=== PATIENT | male | born 1990 | race Asian ===

== ENCOUNTER 2020-06-21 16:33 | Emergency (ER) | payer OTHER ==
[~2020-06-21] VITALS: Ht 177.8 cm; Wt 140.6 kg
[2020-06-21 17:20] VITALS: BP 144/83; TEMP 97.5
== END 2020-06-21 17:20 | disposition home or self-care (01) ==
LOC: ED 16:33
DX: H60.12 Cellulitis of left external ear (principal); S00.462A Insect bite (nonvenomous) of left ear, initial encounter; W57.XXXA Bitten or stung by nonvenomous insect and other nonvenomous arthropods, initial encounter; Y92.89 Other specified places as the place of occurrence of the external cause
CPT/HCPCS: 99282

== ENCOUNTER 2021-12-29 16:50 | Emergency (ER) | payer OTHER ==
[~2021-12-29] VITALS: Ht 180.3 cm; Wt 154.2 kg
[2021-12-29 18:13] VITALS: BP 119/68; TEMP 98.5
== END 2021-12-29 18:13 | disposition home or self-care (01) ==
LOC: ED 16:50
DX: L05.91 Pilonidal cyst without abscess (principal)
CPT/HCPCS: 96372; 99283; J0696; J1885

== ENCOUNTER 2022-01-03 20:49 | Inpatient (IN) | payer OTHER ==
[~2022-01-03] VITALS: Ht 152.4 cm; Wt 164.7 kg
[2022-01-03 20:55] VITALS: BP 161/103; TEMP 98.5
[2022-01-03 21:32] LABS: POTASSIUM 3.9 mmol/L (3.6-5.2)
[2022-01-03 21:35] VITALS: BP 149/97
[2022-01-03 21:38] LABS: PLATELET COUNT 357 K/uL (142-355)
[2022-01-03 22:35] VITALS: BP 134/83
[2022-01-03 23:45] VITALS: BP 156/108
[2022-01-04 02:10] VITALS: BP 150/91; TEMP 98.6; BMI 47.6
[2022-01-04 04:00] VITALS: BP 106/64; TEMP 97.7
[2022-01-04 05:12] LABS: PLATELET COUNT 304 K/uL (142-355)
[2022-01-04 05:26] LABS: POTASSIUM 4.3 mmol/L (3.6-5.2)
[2022-01-04 08:00] VITALS: BP 132/85; TEMP 97.4
[2022-01-04 12:00] VITALS: BP 141/8; BP 141/88; TEMP 97.2
[2022-01-04 16:00] VITALS: BP 158/94; TEMP 97.7
[2022-01-04 20:00] VITALS: BP 160/80; TEMP 97.5
[2022-01-05] VITALS: BP 120/65; TEMP 98.1
[2022-01-05 04:00] VITALS: BP 133/84; TEMP 97.6
[2022-01-05 04:45] LABS: PLATELET COUNT 306 K/uL (142-355)
[2022-01-05 04:46] LABS: POTASSIUM 4.1 mmol/L (3.6-5.2)
[2022-01-05 08:00] VITALS: BP 125/81; TEMP 97.6
[2022-01-05 12:00] VITALS: BP 155/109; TEMP 97.3
[2022-01-05 16:22] VITALS: BP 137/80; TEMP 98.1
[2022-01-05 20:00] VITALS: BP 163/104; TEMP 98.5
[2022-01-05 21:39] LABS: POTASSIUM 4.4 mmol/L (3.6-5.2)
[2022-01-06] VITALS: BP 152/99; TEMP 98.1
[2022-01-06 03:13] VITALS: BP 122/73; TEMP 98.1; Ht 152.4 cm; Wt 164.7 kg
[2022-01-06 04:00] VITALS: BP 149/89; TEMP 98.1
[2022-01-06 05:44] LABS: PLATELET COUNT 292 K/uL (142-355)
[2022-01-06 06:44] LABS: POTASSIUM 3.9 mmol/L (3.6-5.2)
[2022-01-06 08:00] VITALS: BP 145/96; TEMP 97.5
[2022-01-06] MEDS ORDERED: AMLODIPINE BESYLATE PO (10:49)
== END 2022-01-06 11:45 | disposition home or self-care (01) | DRG 683 ==
LOC: ED 20:49 → MED/SURG 22:50
PROVIDERS: Hospitalist; ADMIT Internal Medicine; ATTEND Internal Medicine
DX: N17.8 Other acute kidney failure (principal); Z68.42 Body mass index [BMI] 45.0-49.9, adult; I12.9 Hypertensive chronic kidney disease with stage 1 through stage 4 chronic kidney disease, or unspecified chronic kidney disease; N18.2 Chronic kidney disease, stage 2 (mild); E66.01 Morbid (severe) obesity due to excess calories; G47.33 Obstructive sleep apnea (adult) (pediatric); D72.828 Other elevated white blood cell count; N20.0 Calculus of kidney; K21.9 Gastro-esophageal reflux disease without esophagitis; E86.0 Dehydration; K52.89 Other specified noninfective gastroenteritis and colitis
CPT/HCPCS: 36415; 80053; 80074; 80320; 81002; 81015; 83690; 85027; 86037; 86038; 86160; 86592; 87015; 87040; 87045; 87324; 87449; 87535; 87635; 87899; 96360; 96365; 96375; 99284; J1956; G0432; J0696; J1650; J1885; J2270; J2405; J3490; U0003

== ENCOUNTER 2022-01-29 16:36 | Outpatient (CLI) | payer OTHER ==
[~2022-01-29 16:36] MED LIST: AMLODIPINE BESYLATE PO
[2022-01-29 17:23] LABS: PLATELET COUNT 323 K/uL (142-355)
[2022-01-29 17:37] LABS: POTASSIUM 3.2 mmol/L (3.6-5.2)
== END 2022-01-29 19:05 | disposition home or self-care (01) ==
LOC: LABW 16:36
PROVIDERS: ATTEND Student in an Organized Health Care Education/Training Program
DX: I12.9 Hypertensive chronic kidney disease with stage 1 through stage 4 chronic kidney disease, or unspecified chronic kidney disease (principal); N18.4 Chronic kidney disease, stage 4 (severe); D63.1 Anemia in chronic kidney disease; E79.0 Hyperuricemia without signs of inflammatory arthritis and tophaceous disease; E66.9 Obesity, unspecified; R80.9 Proteinuria, unspecified; N25.81 Secondary hyperparathyroidism of renal origin; E55.9 Vitamin D deficiency, unspecified
CPT/HCPCS: 36415; 80053; 80074; 81002; 82306; 82570; 83036; 83516; 83735; 83970; 84100; 84156; 84165; 84550; 85027; 86037; 86160; 86592; 87535; G0432

== ENCOUNTER 2022-08-30 11:13 | Emergency (ER) | payer OTHER ==
[~2022-08-30] VITALS: Ht 152.4 cm; Wt 149.7 kg
[2022-08-30 11:16] VITALS: BP 125/83; TEMP 97.3
[2022-08-30 11:58] LABS: PLATELET COUNT 351 K/uL (142-355)
[2022-08-30 12:05] LABS: POTASSIUM 3.9 mmol/L (3.6-5.2)
== END 2022-08-30 13:15 | disposition home or self-care (01) ==
LOC: ED 11:13
PROVIDERS: Emergency Medicine Emergency Medical Services
DX: R09.1 Pleurisy (principal); N20.0 Calculus of kidney
CPT/HCPCS: 80053; 81002; 85027; 85379; 96360; 96361; 96374; 96375; 99284; J1885; Q9963